=== PATIENT | female | born 1990 | race Caucasian/White ===

== ENCOUNTER 2024-07-04 21:11 | Emergency (ER) | payer OTHER, SELFPAY ==
--- NOTE | ~2024-07-04 | XR_ITS ---
EXAMINATION: XR elbow LT min 3V DATE: 07/04/2024 21:31 INDICATION: Left elbow pain. Fall. TECHNIQUE: 4 views of left elbow were obtained. COMPARISON: None. FINDINGS: Alignment is normal. There is a nondisplaced fracture of radial head. Joint spaces are norm al. There is an elbow joint effusion. IMPRESSION: 1. Nondisplaced fracture of radial head. 2. Elbow joint effusion. Reviewed, dictated and finalized at location A. SIS INSPECTOR
[2024-07-04 21:18] VITALS: BP 131/67; PULSE 89; RESP 17; TEMP 36.7; O2SAT 100
--- NOTE | 2024-07-04 22:39 | ED.UPPEXIN ---
HPI - Extremity Injury (Upper) General Chief Complaint: Extremity Injury, Upper Stated Complaint: slipped on left arm and hurt elbow Time Seen by Provider: 07/04/24 22:22 Source: patient Mode of arrival: ambulatory Limitations: no limitations History of Present Illness HPI narrative: Patient is a 33-year-old female who presents to the ED status post ground level fall. Patient reports she slipped while trying to kick a ball to her dog. She landed directly onto her left elbow. Complains of pain to her left elbow since then. Difficulty with range of motion. She believes she may have hit her head slightly with the fall, but denies headache, dizziness, lightheadedness, vision changes, nausea vomiting, confusion. She is not on any anticoagulation. Denies numbness. Denies any other injuries. Took ibuprofen prior to arrival. Review of Systems Review of Systems: All systems reviewed & are unremarkable except as noted in HPI. All systems reviewed & are unremarkable except as noted in HPI and below Exam Narrative: GENERAL: Well appearing, well-nourished, non-toxic, in no acute distress. HEAD: Normocephalic, atraumatic. RESPIRATORY: Airway patent, respirations nonlabored. CARDIOVASCULAR: Regular rate and rhythm. Radial pulses are intact and easily palpable. MUSCULOSKELETAL: No gross deformities. Limited range of motion of left elbow due to pain. Slight swelling noted to left elbow joint. Tenderness to palpation over proximal L forearm. Sensation intact. Capillary refill intact. SKIN: Warm, dry, normal color. NEURO: A&O X3. Speech clear. Cranial nerves II-XII grossly intact. Steady gait. No ataxic movements. PSYCHIATRIC: Appropriate mood and affect. Normal interaction. Course Vital Signs Vital signs: Vital Signs Temperature 98.0 F 07/04/24 21:18 Pulse Rate 89 07/04/24 21:18 Respiratory Rate 17 07/04/24 21:18 Blood Pressure 131/67 07/04/24 21:18 Pulse Oximetry 100 07/04/24 21:18 Oxygen Delivery Room Air 07/04/24 21:18 Temperature 98.0 F 07/04/24 21:18 Pulse Rate 89 07/04/24 21:18 Respiratory Rate 17 07/04/24 21:18 Blood Pressure 131/67 07/04/24 21:18 Pulse Oximetry 100 07/04/24 21:18 Oxygen Delivery Room Air 07/04/24 21:18 MDM - Extremity Injury (Upper) MDM Narrative Medical decision making narrative: Patient presented to ED status post ground level mechanical fall, pain to left elbow. X-ray showing nondisplaced radial head fracture. Consistent with exam and injury. No other injuries. Will be discharged to follow-up with orthopedics as an outpatient. Given sling. Pain medications prescribed. Patient reported possible head injury. She denies any red flag symptoms. No indication for CT imaging based on [place] head CT rules. Patient is in agreement with this. Discussed RICE therapy and strict return precautions. Patient in agreement with plan. Discharged in stable condition. Medical Records Attestation: I reviewed the patient's medical records. Imaging Data Attestation: I personally reviewed and interpreted this imaging study as follows: Radiologist's impression: ITS Impressions Elbow X-Ray 07/04/24 21:31 IMPRESSION: 1. Nondisplaced fracture of radial head. 2. Elbow joint effusion. Discharge Plan Discharge Clinical Impression: Closed fracture of radial head Qualifiers: Encounter type: initial encounter Fracture alignment: nondisplaced Laterality: left Qualified Code(s): S52.125A - Nondisplaced fracture of head of left radius, initial encounter for closed fracture Joint effusion of elbow Qualifiers: Laterality: left Qualified Code(s): M25.422 - Effusion, left elbow Patient Disposition: Home, Self-Care Condition: Stable Instructions: Antibiotic Form, Elbow Fracture (ED), How to Use a Sling (ED) Additional Instructions: Utilize Tylenol and Ibuprofen as needed for pain. [place] as needed for more severe pain. Recommend frequent icing to elbow. Utilize sling for comfort and support. You may remove this when sleeping or showering, but avoid use of arm. Follow-up with orthopedics for further evaluation of fracture. Call office to make appointment. Return to the ED if you experience worsening or severe pain, recurrent injury or fall, numbness, severe dizziness, unable to keep down food or drink, or any other symptoms of concern. Patient Language: [place]an Prescriptions: New hydrocodone-acetaminophen 5-325 mg tablet 1 tablet PO Q6H PRN (Reason: pain) Qty: 15 0RF Follow-up/Referrals: Ty Flowers MD [Physician] - (ORTHOPEDICS) PHYSICIAN NOT ON STAFF,NONSTAFF [Primary Care Provider] - Time of Disposition: 22:44
--- OUTSIDE RECORDS SUMMARY | 2024-07-04 22:49 | XMS_ITS | Referral Summary ---
Author Organization [facility] Address [address] [place], [place] [id number] Care Team Providers Care Utility Aide Name Role Phone Dulce Walters MD Primary Care Provider [phone] Social History Tobacco Use Types Packs/Day Years Used Date Smoking Tobacco: Never Assessed Sex and Gender Information Value Date Recorded Sex Assigned at Not on file Gender Identity Not on file Sexual Orientation Not on file Plan of Treatment Not on file Care Teams Utility Aide Relationship Specialty Start Date End Date Dulce Walters MD PCP - General 02/20/19
--- OUTSIDE RECORDS SUMMARY | 2024-07-04 22:49 | XMS_ITS | Clinical Summary ---
Author Organization [facility] Address [address] [facility] [place] [address] Care Team Providers Care Hammer Runner Name Role Phone Abhilash Ernandez MD Primary Care Provider [phone] Source Comments [facility]non-owned Affiliates and Associated Physician Practices is amultiple site organization consisting of ambulatory clinics and hospital sitesin [place], [place], [place] and [place]. This disclosure is being madepursuant to the Care Everywhere program and may not contain all information available regarding this patient. Last updated 18.[facility] Allergies Active Allergy Reactions Criticality Noted Date Comments Prochlorperazine Seizures High 11/19/2022 Medications * Be aware that medications may not be up to date on this document. Alwaysverify current medications with the patient. Medication Sig Dispensed Refills Start Date End Date Status rimegepant (Nurtec) 75 MG tablet 75 mg 10/31/2022 Active nortriptyline (Pamelor) 10 MG capsule Take 2 (two) capsules by mouth at bedtime 11/02/2022 Active escitalopram (Lexapro) 20 MG tablet Take 1 (one) tablet by mouth once daily 10/02/2022 Active Drospirenone-Estetrol (Nextstellis) 3-14.2 MG TABS Take 1 tablet by mouth once daily 07/07/2022 Active Active Problems Problem Noted Date Diagnosed Date Elevated liver enzymes 11/17/2022 Social History Tobacco Use Types Packs/Day Years Used Date Smoking Tobacco: Never Smokeless Tobacco: Never Tobacco Cessation:Counseling Given: Not Answered Alcohol Use Standard Drinks/Week Comments Never 0 (1 standard drink = 0.6 oz pur e alcohol) Sex and Gender Information Value Date Recorded Sex Assigned at Not on file Gender Identity Not on file Sexual Orientation Not on file Last Filed Vital Signs Vital Sign Reading Time Taken Comments Blood Pressure 113/71 11/19/2022 1:20 PM CDT Pulse 110 11/19/2022 1:20 PM CDT Temperature - - Respiratory Rate 15 11/19/2022 1:20 PM CDT Oxygen Saturation 96% 11/19/2022 1:20 PM CDT Inhaled Oxygen Concentration - - Weight - - Height - - Body Mass Index - - Plan of Treatment Health Maintenance Due Date Last Done Comments PAP SMEAR 1992 HIV SCREENING 08/08/2007 HEPATITIS C SCREENING 08/03/2010 DTAP/TDAP/TD VACCINES (1 - Tdap) 08/08/2011 HEPATITIS B VACCINE (1 of 3 - 19+ 3-dose series) 08/08/2011 COVID-19 VACCINE (3 - 2023-2 5 season) 2024 02/14/2022, 05/18/2021 INFLUENZA VACCINE (#1) 2024 , 04/13/2012 DEPRESSION SCREENING 06/08/2024 ZOSTER VACCINE (1 of 2) 2042 HIB VACCINE Aged Out No longer eligi ble based on patient's age to complete this topic HPV VACCINE Aged Out No longer eligi ble based on patient's age to complete this topic MENINGOCOCCAL (Group B) VACCINE Aged Out No longer eligible b ased on patient's age to complete this topic MENINGOCOCCAL VACCINE Aged Out No elizabeth cleo eligible based on patient's age to complete this topic PNEUMOCOCCAL VACCINE Aged Out No long er eligible based on patient's age to complete this topic Care Teams Hammer Runner Relationship Specialty Start Date End Date Abhilash Ernandez MD [address] [address] PCP - General Family Medicine 11/17/22
--- OUTSIDE RECORDS SUMMARY | 2024-07-04 22:49 | XMS_ITS | Referral Summary ---
Author Organization [facility] Address [address] [facility] [place] [address] Care Team Providers Care Pharmacology Teacher Name Role Phone Abhilash Ernandez MD Primary Care Provider [phone] Source Comments [facility],non-owned Affiliates and Associated Physician Practices is amultiple site organization consisting of ambulatory clinics and hospital sitesin [place], [place], [place] and [place]. This disclosure is being madepursuant to the Care Everywhere program and may not contain all information available regarding this patient. Last updated 18.[facility] Allergies Active Allergy Reactions Criticality Noted Date [...] Mass Index - - Plan of Treatment Not on file Care Teams Pharmacology Teacher Relationship Specialty Start Date End Date Abhilash Ernandez MD [address] [address] PCP - General Family Medicine 11/17/22
--- OUTSIDE RECORDS SUMMARY | 2024-07-04 22:49 | XMS_ITS | Patient Health Summary ---
Author Organization [facility] Address [address] [place] [address] Care Team Providers Care Ice Skating Teacher Name Role Phone Abhilash Ernandez MD Primary Care Provider [phone] Note from [facility],non-owned Affiliates and Associated Physician Practices is amultiple site organization consisting of ambulatory clinics and hospital sitesin [place], [place], [place] and [place]. This disclosure is being madepursuant to the Care Everywhere program and may not contain all information available regarding this patient. Last updated 18.[facility] Allergies * Prochlorperazine(Seizures) -High Criticality Medications * Be aware that medications may not be up to date on this document. Alwaysverify current medications with the patient. * rimegepant (Nurtec) 75 MG tablet(Started 10/31/2022) 75 mg * nortriptyline (Pamelor) 10 MG capsule(Started 11/02/2022) Take 2 (two) capsules by mouth at bedtime * escitalopram (Lexapro) 20 MG tablet(Started 10/02/2022) Take 1 (one) tablet by mouth once daily * Drospirenone-Estetrol (Nextstellis) 3-14.2 MG TABS(Started 07/07/2022) Take 1 tablet by mouth once daily Active Problems Problem Noted Date Diagnosed Date [...] - - Body Mass Index - - Procedures * IR PERC LIVER BIOPSY(Performed 11/19/2022) Performed for Elevated liver enzymes * PATHOLOGY TISSUE EXAM (STL)(Performed 11/19/2022) Performed for Elevated liver enzymes * HCG BLOOD QUALITATIVE(Performed 11/19/2022) Performed for Elevated liver enzymes * PT-INR(Performed 11/19/2022) Performed for Elevated liver enzymes * CBC W AUTO DIFFERENTIAL(Performed 11/19/2022) Performed for Elevated liver enzymes * NM HEPATOBILIARY W EF(Performed 11/17/2022) Performed for Abdominal pain, right upper quadrant Results * IR PERC LIVER BIOPSY (11/19/2022 1:26 PM CDT) Anatomical Region Laterality Modality Abdomen X-Ray Angiograph y 11/19/2022 3:27 PM CDT Impressions 11/19/2022 6:35 PM CDT IMPRESSION: ??SONOGRAPHICALLY GUIDED RANDOM LIVER BIOPSY, PERFORMED WITHOUT INCIDENT. > Interpreting Provider: Kulwinder Acosta MD on 11/19/2022 6:35 PM Narrative 11/19/2022 6:35 PM CDT PROCEDURE: ??IR PERC LIVER BIOPSY, DATE/TIME OF EXAM: ??11/19/2022 1:31 PM, LOCATION ??[facility] INDICATION: ??R74.8: Abnormal levels of other serum enzymes ADDITIONAL CLINICAL INFORMATION: Ordering Provider Reason For Exam: Technologist Note: Additional: COMPARISON: ??None. ULTRASOUND GUIDED RANDOM LIVER BIOPSY AND SUPERVISION OF CONSCIOUS SEDATION INDICATION: Elevated liver enzymes TECHNIQUE: ??The procedure was performed by Dr. Acosta. The procedure was explained to Ms. Irizarry, and her ,, with discussion of potential risks of pain, bleeding, infection, visceral injury and obtaining insufficient tissue for diagnosis. ??She voiced her understanding and wish to proceed. The upper abdomen was scanned with the ultrasound probe. ??A site was chosen and marked. [place] protocol was performed prior to the beginning of the procedure, confirming the patient identity and planned procedure, as a 'timeout'. ??Maximum sterile barriers including cap, mask, hand hygiene, sterile gloves, sterile gown, large sterile drape, and 2% chlorhexidine for cutaneous antisepsis were used. The skin was then prepped in the usual manner and draped. The skin and anticipated tract were infiltrated with a buffered lidocaine solution. Using real time sonographic guidance, using sterile ultrasound gel and a sterile ultrasound probe cover, The guiding needle of a CorVocet assembly was then directed into the lateral segment of the left hepatic lobe. A series of 2 core specimens was obtained, with the tissue being submitted, in formalin, to pathology. ??Hard copy images were saved for the PACS. Gelfoam pledgets were injected through the guiding needle. ??A dressing was applied. She was given conscious sedation by the trained radiology nurse and observer, under my direct face to face supervision. She received 3 mg of midazolam and 150 mcg of fentanyl. She was monitored through out the procedure, and during the 15 minutes of sedation, intra-service. Procedure Note Kulwinder Acosta MD - 11/19/2022 PROCEDURE: IR PERC LIVER BIOPSY, DATE/TIME OF EXAM: 11/19/2022 1:31 PM, LOCATION [facility] INDICATION: R74.8: Abnormal levels of other serum enzymes ADDITIONAL CLINICAL INFORMATION: Ordering Provider Reason For Exam: Technologist Note: Additional: COMPARISON: None. ULTRASOUND GUIDED RANDOM LIVER BIOPSY AND SUPERVISION OF CONSCIOUSSEDATION INDICATION: Elevated liver enzymes TECHNIQUE: The procedure was performed by Dr. Acosta. The procedure was explained to Ms. Irizarry, and her ,, with discussion of potential risks of pain, bleeding, infection, visceral injury andobtaining insufficient tissue for diagnosis. She voiced her understanding andwish to proceed. The upper abdomen was scanned with the ultrasound probe. A site waschosen and marked. [place] protocol was performed prior to the beginning ofthe procedure, confirming the patient identity and planned procedure, as a 'timeout'. Maximum sterile barriers including cap, mask, hand hygiene, sterile gloves, sterile gown, large sterile drape, and 2% chlorhexidinefor cutaneous antisepsis were used. The skin was then prepped in the usual manner and draped. The skin and anticipated tract were infiltrated with a bufferedlidocaine solution. Using real time sonographic guidance, using sterile ultrasound gel and a sterile ultrasound probe cover, The guiding needle of aCLogical Lightingt assembly was then directed into the lateral segment of the left hepatic lobe. A series of 2 core specimens was obtained, with the tissue being submitted, in formalin, to pathology. Hard copy images were saved forthe PACS. Gelfoam pledgets were injected through the guiding needle. A dressing was applied. She was given conscious sedation by the trained radiology nurse and observer, under my direct face to face supervision. She received 3 mg of midazolam and 150 mcg of fentanyl. She was monitored through out the procedure, and during the 15 minutes of sedation, intra-service. IMPRESSION: SONOGRAPHICALLY GUIDED RANDOM LIVER BIOPSY, PERFORMEDWITHOUT INCIDENT. > Interpreting Provider: Kulwinder Acosta MD on 11/19/2022 6:35 PM Tyler Ng MD IR ORDERABLES * PATHOLOGY TISSUE EXAM (STL) (11/19/2022 1:19 PM CDT) Case Report Surgical Pathology Report ? Case: [id number] ? Authorizing Provider: ??Tyler gN MD ? Collected: ? 11/19/2022 01:19 PM ? Ordering Location: ? [facility] ?Received: ?11/19/2022 01:32 PM ? Pathologist: ? Yuly Combs MD ? Specimen: ?Liver, liver ? 11/24/2022 9:03 AM CDT [facility] Final Diagnosis Liver, core biopsy: - Steatohepatitis with fibrosis - See microscopic description 11/24/2022 9:03 AM CDT [facility] Clinical History The patient is a 32-year-old woman. An ultrasound showed fatty infiltration of the liver. Laboratory results are as follows: ALT 340, AST 226, total bilirubin 0.5, mitochondrial antibody negative, ceruloplasmin 40, PARUL negative, anti smooth muscle antibody within normal limits. 11/24/2022 9:03 AM CDT [facility] Gross Description Received in formalin labeled with patient's name and liver biopsy fragments of yellow soft tissue measuring 1.7 x 0.3 x 0.1 cm in aggregate. Submitted entirely cassette A1. 11/24/2022 9:03 AM CDT [facility] Microscopic Description Sections show preserved liver architecture with multiple portal tracts present for evaluation. The portal tracts show mild inflammation consisting of lymphocytes, macrophages, and rare eosinophils. There is moderate macrovesicular steatosis (grade 2, scale 0-3) with moderate lobular inflammation consisting of lymphocytes, pigmented macrophages, and rare eosinophils and neutrophils. There are scattered ballooned hepatocytes. The bile ducts are preserved. Trichrome demonstrates perisinusoidal fibrosis, most prominent in zone 3. PAS-D shows no globules that would indicate alpha-1 antitrypsin deficiency. Reticulin demonstrates preserved architecture. An iron stain is negative. The findings in this case support a diagnosis of steatohepatitis with fibrosis (stage 2). The nonalcoholic fatty liver disease grade is as follows: Steatosis 2, lobular inflammation 2, hepatocellular ballooning 2. 11/24/2022 9:03 AM CDT [facility] Disclaimer All histochemical and/or immunohistochemical results are interpreted with controls that demonstrate appropriate staining reactions before reporting results. Note on use of immunocytochemistry reagents: This test was developed and its performance characteristic determined by [facility], Department of Laboratory Medicine. It has not been cleared or approved by the U.S. Food and Drug Administration (FDA). The FDA has determined that such clearance or approval is not necessary. The test is used for clinical purpose. It should not be regarded as investigational or for research. This laboratory is certified to perform high complexity testing. The performance characteristics of the IHC/KARLI assays have been validated on formalin-fixed paraffin embedded tissues only. The assays have not been validated on decalcified tissues. Results should be interpreted with caution. 11/24/2022 9:03 AM CDT [facility] Embedded Images 11/24/2022 9:03 AM CDT [facility] Pathology/Cytolo gy ENTIRE LIVER / Unknown Collection / Unknown 11/19/2022 1:19 PM CDT 11/19/2022 1:32 PM CDT Tyler Ng MD LAB - PATHOLOGY/CYTO LOGY ORDERABLES Performing Organization Address City/State/[facility] Co de Phone Number [facility] [address] [place] [address] * PT-INR (11/19/2022 11:48 AM CDT) PT 12.8 12.1 - 14.8 sec 11/19/2022 12:09 PM CDT [facility] INR 1.0 0.9 - 1.1 11/19/2022 12:09 PM CDT [facility] Blood BLOOD SPECIMEN / Unknown Venipuncture / Unknown 11/19/2022 11:48 AM CDT 11/19/2022 11:54 AM CDT Narrative [facility] - 11/19/2022 12:09 PM CDT Conventional Warfarin Anticoagulant Therapy: INR Reference Range: ??2.0-3.0 Intensive Warfarin Anticoagulant Therapy: INR Reference Range: ? 2.5-3.5 Kulwinder Acosta MD LAB - COAGULATION ORDERABLES [facility] [address] [place] [address] * (ABNORMAL) CBC W AUTO DIFFERENTIAL (11/19/2022 11:48 AM CDT) WBC 10.0 4.4 - 10.7 x10E9/L 11/19/2022 12:01 PM CDT [facility] WBC Corrected 11/19/2022 12:01 PM CDT [facility] RBC 4.35 3.80 - 5.20 x10E12/L 11/19/2022 12:01 PM CDT [facility] Hemoglobin 13.6 12.0 - 15.6 gm/dL 11/19/2022 12:01 PM CDT [facility] Hematocrit 40.0 35.9 - 45.5 % 11/19/2022 12:01 PM CDT [facility] MCV 92.0 80.7 - 98.3 fl 11/19/2022 12:01 PM CDT [facility] MCH 31.3 26.7 - 34.0 pg 11/19/2022 12:01 PM CDT [facility] MCHC 34.0 30.8 - 35.9 gm/dL 11/19/2022 12:01 PM CDT [facility] Platelet Count 460(H) 153 - 416 x10E9/L 11/19/2022 12:01 PM CDT [facility] RDW-CV 12.6 12.1 - 14.9 % 11/19/2022 12:01 PM CDT [facility] MPV 8.8(L) 9.4 - 12.9 fl 11/19/2022 12:01 PM CDT [facility] Neutrophils % 68.4 44.0 - 73.0 % 11/19/2022 12:01 PM CDT [facility] Lymphocytes % 23.2 20.0 - 43.0 % 11/19/2022 12:01 PM CDT [facility] Monocytes % 5.9 5.0 - 13.0 % 11/19/2022 12:01 PM CDT [facility] Eosinophils % 1.7 0.0 - 6.0 % 11/19/2022 12:01 PM CDT [facility] Basophils % 0.5 0.0 - 2.0 % 11/19/2022 12:01 PM CDT [facility] Immature Granulocytes 0.3 0 - 1 % 11/19/2022 12:01 PM CDT [facility] Neutrophil Absolute 6.86 2.01 - 7.14 x10E9/L 11/19/2022 12:01 PM CDT [facility] Lymphocytes Absolute 2.33 1.07 - 3.94 x10E9/L 11/19/2022 12:01 PM CDT [facility] Monocytes Absolute 0.59 0.26 - 1.07 x10E9/L 11/19/2022 12:01 PM CDT [facility] Eosinophils Absolute 0.17 0 - 0.47 x10E9/L 11/19/2022 12:01 PM CDT [facility] Basophils Absolute 0.05 0 - 0.08 x10E9/L 11/19/2022 12:01 PM CDT [facility] Immature Granulocytes Absolute 0.03 0.00 - 0.06 x10E9/L 11/19/2022 12:01 PM CDT [facility] nRBC Auto 0 /100 WBC 11/19/2022 12:01 PM CDT [facility] Blood BLOOD SPECIMEN / Unknown Venipuncture / Unknown 11/19/2022 11:48 AM CDT 11/19/2022 11:54 AM CDT Kulwinder Acosta MD LAB - HEMATOLOGY O RDERABLES Performing Organization Address City/State/[facility] Co de Phone Number [facility] [address] [place] [address] * HCG BLOOD QUALITATIVE (11/19/2022 11:48 AM CDT) HCG Qual Serum Negative Negative 11/19/2022 12:12 PM CDT [facility] Blood BLOOD SPECIMEN / Unknown Venipuncture / Unknown 11/19/2022 11:48 AM CDT 11/19/2022 11:54 AM CDT Kulwinder Acosta MD LAB - CHEMISTRY OR DERABLES [facility] [address] [place] [address] * NM HEPATOBILIARY W EF (11/17/2022 1:48 PM CDT) Anatomical Region Laterality Modality Abdomen Nuclear Medicine 11/17/2022 4:05 PM CDT Impressions 11/17/2022 4:08 PM CDT Impression: 1. Initial phase of nuclear medicine HIDA scan is within normal limits, demonstrating patency of the cystic and common bile ducts. 2. Gallbladder ejection fraction is normal. > Interpreting Provider: Krystle De Guzman MD on 11/17/2022 4:08 PM Narrative 11/17/2022 4:08 PM CDT PROCEDURE: ??NM HEPATOBILIARY W EF, DATE/TIME OF EXAM: ??11/17/2022 1:51 PM, LOCATION ??[facility] INDICATION: R10.11: Right upper quadrant pain ADDITIONAL CLINICAL INFORMATION: Ordering Provider Reason For Exam: Technologist Note: Additional: COMPARISON: None. Technique: After intravenous administration of 5.7 mCi labeled Mebrofenin, multiple images of the right upper quadrant were obtained. 1.78 mcg CCK was infused over 3 minutes and gallbladder ejection fraction calculated by region of interest. Findings: Initial phase of the study is normal, demonstrating a good extraction of radiopharmaceutical by the liver. The gallbladder is visualized promptly. There is visualization of the common bile duct and small bowel, demonstrating patency of the cystic duct and of the common bile duct.. After administration of CCK, the maximum gallbladder ejection fraction is calculated at 59.57% at 29 minutes. This is well above the normal gallbladder ejection fraction of greater than or equal to 35%. Procedure Note Krystle De Guzman MD - 11/17/2022 PROCEDURE: NM HEPATOBILIARY W EF, DATE/TIME OF EXAM: 11/17/2022 1:51PM, LOCATION [facility] INDICATION: R10.11: Right upper quadrant pain ADDITIONAL CLINICAL INFORMATION: Ordering Provider Reason For Exam: Technologist Note: Additional: COMPARISON: None. Technique: After intravenous administration of 5.7 mCi labeledMebrofenin, multiple images of the right upper quadrant were obtained. 1.78 mcg CCKwas infused over 3 minutes and gallbladder ejection fraction calculated by region of interest. Findings: Initial phase of the study is normal, demonstrating a good extraction of radiopharmaceutical by the liver. The gallbladder is visualized promptly. There is visualization of the common bile duct and small bowel, demonstrating patency of the cystic duct and of the common bile duct.. After administration of CCK, the maximum gallbladder ejection fractionis calculated at 59.57% at 29 minutes. This is well above the normal gallbladder ejection fraction of greater than or equal to 35%. Impression: 1. Initial phase of nuclear medicine HIDA scan is within normal limits, demonstrating patency of the cystic and common bile ducts. 2. Gallbladder ejection fraction is normal. > Interpreting Provider: Krystle De Guzman MD on 11/17/2022 4:08 PM Linda Zepeda MAGNETIC OBSERVER-SALES AND DISTRIBUTION CLERK NM ORDERABL ES Care Teams Ice Skating Teacher Relationship Specialty Start Date End Date Abhilash Ernandez MD [address] [address] PCP - General Family Medicine 11/17/22
--- OUTSIDE RECORDS SUMMARY | 2024-07-04 22:49 | XMS_ITS | Clinical Summary ---
Author Organization [facility] Address [address] [place], [place] [id number] Care Team Providers Care Rn Charge Name Role Phone Dulce Walters MD Primary Care Provider [phone] Social History Tobacco Use Types Packs/Day Years Used Date Smoking Tobacco: Never Assessed Sex and Gender Information Value Date Recorded Sex Assigned at Not on file Gender Identity Not on file Sexual Orientation Not on file Plan of Treatment Health Maintenance Due Date Last Done Comments Depression Screening 2004 Varicella Vaccine (1 of 2 - 13+ 2-dose series) 2005 DTaP/Tdap/Td Vaccine (1 - Tdap) 08/08/2011 Hepatitis B Vaccine (1 of 3 - 19+ 3-dose series) 08/08/2011 COVID-19 Vaccine ( - 2023-2 5 season) 2024 Influenza Vaccine (#1) 2024 HPV Vaccine Aged Out No longer eligi ble based on patient's age to complete this topic Meningococcal Vaccine Aged Out No elizabeth cleo eligible based on patient's age to complete this topic Pneumococcal Vaccine 0-49 Aged Out No longer eligible based on patient's age to complete this topic Care Teams Rn Charge Relationship Specialty Start Date End Date Dulce Walters MD PCP - General 02/20/19
--- OUTSIDE RECORDS SUMMARY | 2024-07-04 22:49 | XMS_ITS | Encounter Summary ---
Author Organization [facility] Address [address] [facility] [address] [place] [address] Phone Care Team Providers Care Cloth Finishing Range Operator Chief Name Role Phone Abhilash Ernandez MD Primary Care Provider Encounter Details Date Type Department Care Team (Late st Contact Info) Description 05/10/2023 Orders Only [facility] Gastroenterology [address] [facility] [address] [place] [address] Geovanni Mccoy MD [address] [facility] [place] [address] Social History Tobacco Use Types Packs/Day Years Used Date Smoking Tobacco: Never Smokeless Tobacco: Never AUDIT-C Answer Date Recorded Q1: How often do you have a drink containing alcohol? Never 02/02/2023 Q2: How many drinks containi ng alcohol do you have on a typical day when you are drinking? Patient does not drink Q3: How often do you have si x or more drinks on one occasion? Never 02/02/2023 Comments No Sex and Gender Information Value Date Recorded Sex Assigned at Not on file Legal Sex Female 3:40 PM CDT Gender Identity Female 06/20/2021 3:22 PM POLICE SPECIALIST Sexual Orientation Straight 06/20/2021 3: 22 PM POLICE SPECIALIST documented as of this encounter Miscellaneous Notes * Mobile Documentation - Geovanni Mccoy MD - 05/10/2023 7:08 PM POLICE SPECIALIST Received a call tonight that Claudia developed worsening RUQ abd discomfort, nausea, and chills. Pain is now 7/10 in intensity, previously 2/10. Her pain is now radiating up into her back. She reports chills but denies any fevers. She is currently being seen by the hepatology group for evaluation of her elevated liver chemistries over the last several months. She has known gallstones. I instructed the pt to present to the emergency room to evaluate for acute cholecystitis / changes in her liverchemistries. I will update her outpt hepatology team. Geovanni mccoy MD Gastroenterology Fellow CE SPECIALIST documented in this encounter Plan of Treatment Not on file documented as of this encounter Visit Diagnoses Not on filedocumented in this encounter Care Teams Cloth Finishing Range Operator Chief Relationship Specialty Start Date End Date Abhilash Ernandez MD [address] [address] PCP - General Family Medicine 02/12/23 documented as of this encounter
--- OUTSIDE RECORDS SUMMARY | 2024-07-04 22:49 | XMS_ITS | Referral Summary ---
Author Organization [facility] Address [address] [place] [address] Care Team Providers Care Hog Handler Name Role Phone Abhilash Ernandez MD Primary Care Provider Encounters Date Type Department Care Team Description 06/24/2024 Telephone [facility] Gastroenterology [address] [facility] Advanced Medicine 12th [place] [address] [place] [phone] Cinthia Rincon LPN 04/13/2024 9:30 AM CONTINUING EDUCATION SPECIALIST Office Visit [facility] Gastroenterology [address] [facility] Medicine 12th [place] [address] [place] [phone] Cinthia Juan NP Diarrhea, unspecified type (Primary Dx); HOBBS (nonalcoholic steatohepatitis) from Last 3 Months Allergies Active Allergy Reactions Criticality Noted Date Comments Mold Rhinorrhea Low 05/23/2019 Prochlorperazine Mental status changes Low 08/21/19 11 dystonia Medications Lactobac 40-Bifido 3-S.thermop (Probiotic) 100 billion cell capsuleIndicati ons:bowel health Take 1 capsule by mouth every morning 1 Active fluticasone propionate (FLONASE) 50 mcg/actuation nasal sprayIndication s:Allergic Rhinitis Administer 2 sprays into affected nostril(s) every morning 1 Active multivitamin (DAILY VITAMIN ORAL)Indication s:supplement Take 1 tablet by mouth every morning Active Nurtec ODT tablet,disinteg ratingIndicatio ns:Migraine Place 1 tablet (75 mg total) under the tongue as needed 3 Active escitalopram (LEXAPRO) 20 mg tabletIndicatio ns:Anxiety with Depression Take 1 tablet (20 mg total) by mouth every morning 2 Active cyanocobalamin (Vitamin B-12) 100 mcg tabletIndicatio ns:Prevention of Vitamin B12 Deficiency Take 1 tablet (100 mcg total) by mouth daily Active cetirizine 10 mg capsule Take 1 tablet by mouth daily Active tirzepatide, weight loss, (Zepbound) 7.5 mg/0.5 mL pen injectorIndicat ions:Weight Loss Management for Obese Patient (BMI >= 30),HOBBS Inject 0.5 mL (7.5 mg total) under the skin once a week 2 mL 3 4 Active Active Problems Problem Noted Date Diagnosed Date Hx of cholecystectomy 07/16/2023 Cholelithiasis without cholecystitis 06/29/2023 Diarrhea 05/27/2023 RUQ pain 05/27/2023 HOBBS (nonalcoholic steatohepatitis) 02/02/2023 Assessment & Plan (02/22/2024 2:43 PM CDT): Mrs. Irizarry presents for follow up for HOBBS, biopsy proven with stage 2 Fibrosis(11/2022). She has been taking Tirzepatide injections since October 2023, on maximum dose of 7.5 mg subcutaneously weekly and is doing well. She has since lost 7 lbs. I have commended patient on her weight loss success. Recommend continued efforts with weight loss through diet and exercise. I will update lab work today to evaluate liver tests. We have discussed the natural history of Metabolic dysfunction-associated steatosis liver disease (MASLD) fomerly known as NAFLD. The the risks of progression to cirrhosis, association with hepatocellular carcinoma and potential future need for liver transplantation. We have discussed that in patients with metabolic associated liver disease the main mortality risks are primarily due to cardiovascular diseases, non-hepatic malignancies or cancers and only thirdly, from complications of liver disease. We recommend weight loss through diet and exercise. We recommend weight loss of 10% of current body weight over a period of a year. Lifestyle modification consisting of diet, exercise, and weight loss is necessary to treat patients with MASLD. The data shows that overall weight loss is the byrd to improvement in the histopathological features of MASH. A combination of a low calorie diet (daily reduction by 500-1,000 kcal) and moderate-intensity exercise provides the best chances of achieving and maintaining weight loss over time. Weight loss of at least 3%-5% of body weight appears necessary to improve steatosis, but a greater weight loss (7%-10%) is needed to improve the majority of the histopathological features of MASH, including fibrosis. Fibroscan next visit. Follow up in 6 months. Assessment & Plan (08/24/2023 12:52 PM CDT): Mrs. Irizarry presents for follow up for HOBBS, biopsy proven with stage 2 Fibrosis(11/2022). Her liver tests remain elevated, although improved on lab work 07/16/2023: Alk Phos 133, ALT 128, AST 70. She remains active and eats healthy, she has lost ~3 lbs. She has discontinued supplements and does not drink alcohol. She has recent cholecystectomy, recovering well. I have offered GLP-1 Agonist for weight loss. I have again discussed GLP-1 Agonist such as Semaglutide (Ozempic) with patient. We have discussed potential side effects, patient is hesitent given her GI complaints. Patient would like to think about this for now and continue behavioral weight loss efforts. She will notify me should she decide pharmacological options for weight management. She has discussed clinical trial with Dr. Segovia. We have discussed the natural history of Metabolic dysfunction-associated steatosis liver disease (MASLD) fomerly known as NAFLD. The the risks of progression to cirrhosis, association with hepatocellular carcinoma and potential future need for liver transplantation. We have discussed that in patients with metabolic associated liver disease the main mortality risks are primarily due to cardiovascular diseases, non-hepatic malignancies or cancers and only thirdly, from complications of liver disease. We recommend weight loss through diet and exercise. We recommend weight loss of 10% of current body weight over a period of a year. Lifestyle modification consisting of diet, exercise, and weight loss is necessary to treat patients with MASLD. The data shows that overall weight loss is the byrd to improvement in the histopathological features of MASH. A combination of a low calorie diet (daily reduction by 500-1,000 kcal) and moderate-intensity exercise provides the best chances of achieving and maintaining weight loss over time. Weight loss of at least 3%-5% of body weight appears necessary to improve steatosis, but a greater weight loss (7%-10%) is needed to improve the majority of the histopathological features of MASH, including fibrosis. She will obtain lab work in September-October 2023. Follow up in 6 months Assessment & Plan (02/02/2023 10:25 AM CDT): Mrs. Irizarry presents for evaluation of HOBBS, biopsy proven with stage 2 fibrosis (11/2022). She has past medical history of IBS, Obesity BMI 32 and newly diagnosed hypothyroid. She has had extensive liver workup, with likely etiology related to patient's underlying metabolic syndrome. MRI 11/01/2022 showed gallstone in the gallbladder, normal bile ducts, mildly fatty infiltrated liver, hepatocellular steatosis. Her most recent liver function tests 10/27/2022: ALT 230, AST 226. Discussed patient's liver biopsy and diagnosis in detail. Discussed that there can be transient, mild elevation in liver function tests with the use of estrogen containing control. It is unlikely, but possible her control could have caused her elevations (discontinued in November 2022). Will obtain liver biopsy pathology and have [facility] Pathologist read and confirm diagnosis. Will update lab work today to include: Hepatitis A and B immune status, CMP, CBC, and Lipid panel. Patient reports heart palpitations, will update TSH, T3, T4 levels with today's lab work. Patient is highly motivated and I have given her a weight loss goal of 10% of her body weight (~20 lbs) over the course of 1 year. She has successfully lost 6 lbs since October of 2022. Discussed GLP-1 Agonist such as Semaglutide (Ozempic). She will discuss with her PCP. Patient may be a candidate for Dr. Segovia's NATiV3 research study, will await pathology results. Advised patient to discontinue supplements she is taking as there has been no study proven benefit to treat HOBBS. She has history of IBS, chronic fatigue and abdominal bloating. Negative celiac disease antibody. Referral placed for general GI. We have discussed the natural history of non-acoholic fatty liver disease, the risks of progression to cirrhosis, association with hepatocellular carcinoma and potential future need for liver transplantation. We have discussed that in patients with nonalcoholic fatty liver disease the main mortality risks are primarily due to cardiovascular diseases, non-hepatic malignancies or cancers and only thirdly, from complications of liver disease. We recommend weight loss through diet and exercise. We recommend weight loss of 10% of current body weight over a period of a year. Lifestyle modification consisting of diet, exercise, and weight loss is necessary to treat patients with NAFLD. The data shows that overall weight loss is the byrd to improvement in the histopathological features of HOBBS. A combination of a low calorie diet (daily reduction by 500-1,000 kcal) and moderate-intensity exercise provides the best chances of achieving and maintaining weight loss over time. Weight loss of at least 3%-5% of body weight appears necessary to improve steatosis, but a greater weight loss (7%-10%) is needed to improve the majority of the histopathological features of HOBBS, including fibrosis. Hypothyroid 02/02/2023 Migraines 02/02/2023 IBS (irritable bowel syndrome) 02/02/2023 Assessment & Plan (08/24/2023 11:25 AM CDT): Patient follows with GI/ Biliary provider, Cinthia Juan NP for RUQ and diarrhea. She is scheduled for EGD and colonoscopy for evaluation on 09/18/2023. Cholelithiasis 02/02/2023 Social History Tobacco Use Types Packs/Day Years Used Date Smoking Tobacco: Never Smokeless Tobacco: Never Tobacco Cessation:Counseling Given: Not Answered AUDIT-C Answer Date Recorded Q1: How often do you have a drink containing alcohol? Never 02/22/2024 Q2: How many drinks containi ng alcohol do you have on a typical day when you are drinking? Patient does not drink Q3: How often do you have si x or more drinks on one occasion? Never 02/22/2024 Personal Safety Answer Date Recorded Have you ever been in or are you currently in a harmful physical or emotional relationship or is someone making you feel afraid or unsafe? Denies 09/18/2023 Comments No Sex and Gender Information Value Date Recorded Sex Assigned at Not on file Legal Sex Female 3:40 PM CDT Gender Identity Female 06/20/2021 3:22 PM CONTINUING EDUCATION SPECIALIST Sexual Orientation Straight 06/20/2021 3: 22 PM CONTINUING EDUCATION SPECIALIST Last Filed Vital Signs Vital Sign Reading Time Taken Comments Blood Pressure 105/75 04/13/2024 9:46 AM CONTINUING EDUCATION SPECIALIST Pulse 76 04/13/2024 9:46 AM CONTINUING EDUCATION SPECIALIST Temperature 36.6 ??C (97.9 ??F) 04/13/2024 9:46 AM CS T Respiratory Rate 18 09/18/2023 2:05 PM CDT Oxygen Saturation 99% 09/18/2023 2:05 PM CDT Inhaled Oxygen Concentration - - Weight 86.8 kg (191 lb 6.4 oz) 04/13/2024 9:46 A M CONTINUING EDUCATION SPECIALIST Height 167.6 cm (5' 6 ) 04/13/2024 9:46 AM CONTINUING EDUCATION SPECIALIST Body Mass Index 30.89 04/13/2024 9:46 AM CONTINUING EDUCATION SPECIALIST Plan of Treatment Not on file Procedures Procedure Name Priority Date/Time Associated Diagnosis Comments PAP AND HIGH RISK HPV, REFLEX TO GENOTYPING Routine 06/17/2023 11:20 AM CONTINUING EDUCATION SPECIALIST Well female exam with routine gynecological exam Screening for HPV (human papillomavirus) from Last 3 Months or Most Recently Relevant to Health Maintenance Results * Pap and High Risk HPV and Genotyping (Cytology Component) (06/17/2023 11:20 AM CONTINUING EDUCATION SPECIALIST) Endocervical (Pap test) 06/17/2023 11:20 AM CONTINUING EDUCATION SPECIALIST 06/18/2023 9:32 AM CONTINUING EDUCATION SPECIALIST Narrative PATHOLOGY [facility] - 06/19/2023 4:38 PM CONTINUING EDUCATION SPECIALIST [facility] results best viewed via link to PDF [address] ??[address] Tele: ?? Flower Hamilton MD - Deck Officer CYTOLOGY REPORT Note to Patients: This report may contain a detailed description of human tissue sent by a health care provider to the laboratory for pathologic evaluation. The content of this report is essential for diagnosis and may provide important critical findings. This information may be unfamiliar to patients to review without a medical professional present. It is advised that the patient review this report in the presence of a health care provider who can answer questions and explain the details. Patient Name: ??SOUTH IRIZARRY Address: ??[address] [place], [place] [address] Gender: ??F : ??1990 (Age: 32) Service: ?? Location: ?? Hospital #: ??[id number] [place] [place]: ??06/17/2023 Reported: ??06/19/2023 Physician(s): ? MARCELO Hunt FINAL DIAGNOSIS: SOURCE OF SPECIMEN ?- ThinPrep Pap and HPV w/ reflex Genotyping: STATEMENT OF ADEQUACY Source: ??Cervical/Endocervical ?- Satisfactory for interpretation ?- Endocervical /Transformation Zone component present ?- Case screened using computer assisted imaging technology ? GENERAL CATEGORIZATION: ?- Negative for intraepithelial lesion or malignancy ? INTERPRETATION: ?- Acute Inflammation ? daniella/06/19/2023 16:38BERNY Brown(ASCP), CFIAC Report Reviewed and Electronically Signed By ??BERNY Brown(ASCP), CFIACClerical Data Follow A; [id number] DIAGNOSIS COMMENT: ? Ancillary Testing: HPV Genotype 16 ? - ??Not Detected ? Reference Range: ? Not Detected HPV Genotype 18 ? - ??Not Detected ? Reference Range: ? Not Detected HPV High Risk Group (31, 33, 35, 39, 45, 51, 52, 56, 58, 59, 66 and 68) ? - ??Not Detected ? Reference Range: ? Not Detected ? This test was performed using the MANOHAR 4800 CLINICAL DIAGNOSIS AND HISTORY Last Menstrual Period: 06/04/23 REPORT IMAGES AND/OR SCANNED DOCUMENTS ONLY VIEWABLE IN PDF FORMAT The Pap test is a screening test used to aid in the detection of cervical cancer and its precursors. It should not be the sole means by which malignant and premalignant lesions are diagnosed. ??Both false negative and false positive results may occur. ??It also has poor sensitivity for the detection of endometrial lesions and should not be used to evaluate suspected endometrial abnormalities. ??For these reasons it is most important to obtain Pap tests at regular intervals, as recommended by your physician or nurse practitioner. Debra Ziegler LEGAL SERVICES PROFESSIONAL LAB CYTOLOGY ORDERABLES [facility] Result PATHOLOGY [facility] Laboratory Receiving [address] [place] [address] from Last 3 Months or Most Recently Relevant to Health Maintenance Insurance [facility] [employer] Advance Directives For more information, please contact: [phone] * Full Code (Latest Code Status on File) Date Activated Date Inactivated Comments 09/18/2023 11:38 AM 09/18/2023 6:25 PM Care Teams Hog Handler Relationship Specialty Start Date End Date Abhilash Ernandez MD [address] [address] PCP - General Family Medicine 02/12/23
--- OUTSIDE RECORDS SUMMARY | 2024-07-04 22:49 | XMS_ITS | Clinical Summary ---
Author Organization [facility] Address [address] [place] [address] Care Team Providers Care Sales Commissions Analyst Name Role Phone Abhilash Ernandez MD Primary Care Provider Allergies Active Allergy Reactions Criticality Noted Date [...] & Plan (02/22/2024 2:43 PM CDT): Mrs. Wills presents for follow up for HOBBS, biopsy [...] & Plan (08/24/2023 12:52 PM CDT): Mrs. Wills presents for follow up for HOBBS, biopsy [...] & Plan (02/02/2023 10:25 AM CDT): Mrs. Wills presents for evaluation of HOBBS, biopsy proven [...] [facility] biopsy [facility]. Will update [...] colonoscopy for evaluation on 09/18/2023. Cholelithiasis 02/02/2023 Encounters Date Type Department Care Team Description 06/24/2024 Telephone [facility] G[facility]enterology [facility] Advanced Medicine 12th [place] [address] [place] [address] Cinthia Rincon LPN 04/13/2024 9:30 AM GENERAL CARGO CLERK Office Visit [facility] Gastroenterology [address] [place] [address] 12th [place] [address] [place] [address] Cinthia Juan NP Diarrhea, unspecified type (Primary Dx); HOBBS (nonalcoholic steatohepatitis) from Last 3 Months Surgical History Surgery Date Site/Laterality Comments US GUIDED BIOPSY LIVER 11/19/2022 N/A COLONOSCOPY 06/08/2014 - 06/07/2015 WISDOM TOOTH EXTRACTION 06/08/2009 - 06/07/2010 LAPAROSCOPIC CHOLECYSTECTOMY 06/29/2023 Medical History Medical History Date Comments GERD (gastroesophageal reflux disease) 2005 Anxiety 2013 Depression 2014 Migraines 2010 Nonalcoholic steatohepatitis (HOBBS) 11/2022 PONV (postoperative nausea and vomiting) Family History Medical History Relation Name Comments Cancer Father Fransisco Wills Cholelithiasis Father Fransisco Wills Depression Father Fransisco Wills Diabetes Father Fransisco Wills NOMAN disease Father Fransisco Mcleantuantrina Hypertension Father Fransisco Mcleanrebeca Obesity Father Fransisco Mcleanrebeca Alzheimer's disease Maternal Grandmother Sera Neum quintin Cholelithiasis Maternal Grandmother Seraalma Hein Diverticulitis Maternal Grandmother Sera Hein Miscarriages / Stillbirths Maternal Grandmother Nomantru de [place] Hypertension Mother Linda Wills Anesthesia problems Neg Hx Relation Name Status Comments Father Fransisco Wills Maternal Grandmother Sera Hein Mother Linda Wills Social History Tobacco Use Types Packs/Day Years [...] CDT Gender Identity Female 06/20/2021 3:22 PM GENERAL CARGO CLERK Sexual Orientation Straight 06/20/2021 3: 22 PM GENERAL CARGO CLERK Obstetrics History Last Filed Vital Signs Vital Sign Reading Time Taken Comments Blood Pressure 105/75 04/13/2024 9:46 AM GENERAL CARGO CLERK Pulse 76 04/13/2024 9:46 AM GENERAL CARGO CLERK Temperature 36.6 ??C (97.9 ??F) 04/13/2024 9:46 AM CS T Respiratory Rate 18 09/18/2023 2:05 PM CDT Oxygen Saturation 99% 09/18/2023 2:05 PM CDT Inhaled Oxygen Concentration - - Weight 86.8 kg (191 lb 6.4 oz) 04/13/2024 9:46 A M GENERAL CARGO CLERK Height 167.6 cm (5' 6 ) 04/13/2024 9:46 AM GENERAL CARGO CLERK Body Mass Index 30.89 04/13/2024 9:46 AM GENERAL CARGO CLERK Plan of Treatment Health Maintenance Due Date Last Done Comments Depression Screening 1990 Hepatitis C Screening 1990 Pneumococcal vaccine <65 (1 of 2 - PCV) 1998 Hepatitis B Screening 2010 DTaP/Tdap/Td Vaccine (1 - Tdap) 11/07/2010 11/06/2010 Varicella Vaccines (2 of 2 - 13+ 2-dose series) 01/23/2016 12/26/2015 Covid-19 Vaccine (4 - season) 2024 05/18/2021, 09/22/2020, 09/01/2020 Influenza Vaccine (#1) 2024 04/27/2021, 2011 Cervical Cancer Screening 06/17/20242023, 06/17/2023, 06/16/2022, Additional history exists Regular Well Visit/Exam 18-64 06/17/2024 06/17/2023, 06/16/2022, 06/13/2021 HPV Vaccines Aged Out No longer eligi ble based on patient's age to complete this topic Procedures Procedure Name Priority Date/Time Associated Diagnosis Comments PAP AND HIGH RISK HPV, REFLEX TO GENOTYPING Routine 06/17/2023 11:20 AM GENERAL CARGO CLERK Well female exam with routine gynecological exam Screening for HPV (human papillomavirus) from Last 3 Months or Most Recently Relevant to Health Maintenance Results * Pap and High Risk HPV and Genotyping (Cytology Component) (06/17/2023 11:20 AM GENERAL CARGO CLERK) Endocervical (Pap test) 06/17/2023 11:20 AM GENERAL CARGO CLERK 06/18/2023 9:32 AM GENERAL CARGO CLERK Narrative PATHOLOGY [facility] - 06/19/2023 4:38 PM GENERAL CARGO CLERK [facility] results best viewed via link to PDF [address] ??[id number] Tele: ?? Flower Hamilton MD - Professor Of Poultry Science CYTOLOGY REPORT Note to Patients: This report [...] and explain the details. Patient Name: ??SOUTH WILLS Address: ??[address] [place], [place] [address] Gender: ??F : ??1990 (Age: 32) Service: ?? Location: ?? Hospital #: ??[id number] Patient Type: ??[facility] [place]EN Taken: ??06/17/2023 Reported: ??06/19/2023 Physician(s): ? [...] recommended by your physician or nurse practitioner. us Debra Ziegler INSURANCE ADJUSTER LAB CYTOLOGY ORDERABLES [facility] Result PATHOLOGY [facility] Laboratory Receiving [address] [place] [address] from Last 3 Months or Most Recently Relevant to Health Maintenance Insurance [facility] CIG[employer] Advance Directives For more information, please contact: [phone] * Full Code (Latest Code Status on File) Date Activated Date Inactivated Comments 09/18/2023 11:38 AM 09/18/2023 6:25 PM Care Teams Sales Commissions Analyst Relationship Specialty Start Date End Date Abhilash Ernandez MD [address] [address] PCP - General Family Medicine 02/12/23
[2024-07-04] MEDS: HYDROcodone/acetaminophen (*CRX) 5-325 MG TABLET 1 TAB PO (22:52)
== END 2024-07-04 22:55 | disposition home or self-care (01) ==
LOC: ANHED 22:47
PROVIDERS: Emergency Provider Physician Assistant
DX: S52.125A Nondisplaced fracture of head of left radius, initial encounter for closed fracture (principal); W01.0XXA Fall on same level from slipping, tripping and stumbling without subsequent striking against object, initial encounter; M25.422 Effusion, left elbow
CPT/HCPCS: 73080; 99283; A4565; A9270